=== PATIENT | male | born 1980 | race Caucasian/White ===

== ENCOUNTER 2024-01-24 09:17 | Outpatient (CLI) | payer BC, SELFPAY ==
--- NOTE | ~2024-01-24 | MR_ITS ---
MRI of the right shoulder Technique: Axial proton-density fat-sat images, coronal proton density fat-sat and T2 fat-sat images, and sagittal T1-weighted and T2 fat-sat images were acquired. Clinical History: Pain Findings: There is mild AC joint degenerative change. Coracoclavicular, coracoacromial, and coracohum eral ligaments are probably intact. There is severe supraspinatus and infraspinatus tendinosis. There is probable bursal surface partial thickness fraying/tearing at the very distal, anterior supraspinatus tendon insertion. No definite fu ll-thickness tear seen. Subscapularis tendon is intact, with severe tendinosis. Tendon of long head o f the biceps is intact. No labral tear evident. No significant degenerative change or effusion of the glenohumeral joint. There is mild fluid distent ion of the subacromial/subdeltoid bursa. No muscle atrophy or edema. Impression: Severe rotator cuff tendinosis with probable bursal surface fraying/partial tearing at the very anter ior, distal supraspinatus tendon insertion. Subacromial/subdeltoid bursitis. Mild AC joint degenerative change. Reviewed, dictated and finalized at [facility]. [employer] Impression: Severe rotator cuff tendinosis with probable bursal surface fraying/partial tea ring at the very anterior, distal supraspinatus tendon insertion. Subacromial/subdeltoid bursitis. Mild AC joint degenerative change.
== END 2024-01-24 09:18 | disposition home or self-care (01) ==
PROVIDERS: PCP Family Medicine; Visit Provider Family Medicine
DX: M19.011 Primary osteoarthritis, right shoulder (principal); M75.51 Bursitis of right shoulder; M75.31 Calcific tendinitis of right shoulder; G89.29 Other chronic pain
CPT/HCPCS: 73221